=== PATIENT | male | born 1960 | race Caucasian/White ===

== ENCOUNTER 2022-07-28 06:31 | Emergency (ER) | payer BC, OTHER ==
[2022-07-28] MEDS ORDERED: methylPREDNISolone Sodium Succinate 125 MG/2 ML SDV IM ONE (07:23)
[2022-07-28 08:05] VITALS: BP 118/77; PULSE 68
== END 2022-07-28 08:06 | disposition home or self-care (01) ==
LOC: JD.ED 06:31
DX: M02.39 Reiter's disease, multiple sites (principal); F17.210 Nicotine dependence, cigarettes, uncomplicated; Z90.49 Acquired absence of other specified parts of digestive tract
CPT/HCPCS: 96372; 99283; J2930